=== PATIENT | male | born 1945 | race Caucasian/White ===

== ENCOUNTER 2023-09-04 17:53 | Observation (INO) | payer OTHER ==
--- OUTSIDE RECORDS SUMMARY | 2023-09-04 18:26 | XMS REPORT | Continuity of Care Document ---
Author Name Unknown Address [address] [place] [address] [address] [place] [address] [facility] thconnect Address [address] [facility] [address] [place] [address] Care Team Providers Care Manager Pulmonary Name Role Phone ERICKSON_R Attending Clinician Unavailable Provider, [facility] Attending Clinician Un available Lab, Adc Fam Pob I Attending Clinician Unavailab Otilio Beckwith Attending Clinician OTILIO SIMONS Attending Clinician Unavailable ERDUNCAN_Kan Admitting Clinician Unavailable Payers Payer Name Policy Type Policy Number Effective Date Expirati on Date Source [place] PayProp [id number] 2009 00:00:00 [employer] (INDEMNITY) [id number] 00:00:00 Allergies, Adverse Reactions, Alerts Allergy Name Allergy Type Status Severity Reaction(s) Onset Date Inactive Date Treating Clinician Comments Source NO KNOWN ALLERGIE S Drug Class Active [facility] Social History Social Habit Start Date Stop Date Quantity Comments Source Sex Assigned At [facility] Exposure to SARS-CoV-2 (event) Not sure [facility] Smoking Status Start Date Stop Date Source Unknown if ever smoked [facility] Encounters Start Date/Time End Date/Time Encounter Type Admission Type Attending Clinicians Care Facility Care Department Encounter ID Source 2021-09-22 00:00:00 2021-09-22 00:00:00 Outpatient ERICKSON_R [facility] [id number] 2021-09-03 05:29:00 2021-09-03 05:29:00 Outpatient ERICKSON_R [facility] [id number] 2021-07-30 04:02:00 2021-07-30 04:02:00 Outpatient ERICKSON_R [facility] [id number] 2021-06-24 12:23:00 2021-06-24 12:23:00 Outpatient ERICKSON_R [facility] [id number] 2020-11-15 04:34:00 2020-11-15 04:34:00 Outpatient ERICKSON_R [facility] [id number] 2020-07-29 01:03:00 2020-07-29 01:03:00 Outpatient ERICKSON_R [facility] [id number] 2020-07-09 00:00:00 2020-07-09 00:00:00 Telephone Provider, [facility] ..[id number] [facility] 2020-07-07 11:04:09 2020-07-07 11:24:09 Laboratory Only Lab, [facility] Fam Pob [facility] Office [address] ..[id number] [facility] 2020-07-07 11:00:00 2020-07-07 11:00:00 Outpatient OTILIO QUINTANILLA [facility] [id number] [facility] 2020-06-24 01:02:00 2020-06-24 01:02:00 Outpatient ERICKSON_R [facility] [id number]
[2023-09-04 19:38] LABS: Absolute Basophils 0.1 K/uL (0-0.5); Absolute Eosinophils 0.2 K/uL (0-0.5); Absolute Lymphocytes (CBC) 1.7 K/uL (0.7-4.9); Absolute Monocytes 0.7 K/uL (0.1-1.3); Absolute Neutrophil 4.3 K/uL (1.8-8.0); Basophils % 0.9 % (0-1.3); Eosinophils % 3.4 % (0-4.4); Hematocrit 45.1 % (39.6-49.0); Hemoglobin 15.3 g/dL (13.6-17.9); Lymphocytes % 24.5 % (15.3-44.8); MCH 29.8 pg (27.0-35.0); MCHC 33.9 g/dL (32.0-36.0); MPV 8.4 fL (7.6-11.3); Monocytes % 10.4 % (3.3-12.3); Neutrophils % 60.8 % (41.7-73.7); Nucleated Red Blood Cells % 0.3 % (0-0); Platelets 201 thou/uL (152-406); RBC Red Blood Cell Count 5.12 M/uL (4.33-5.43); Red Cell Distribution Width 12.9 % (12.1-15.2)
[2023-09-04] MEDS: ASPIRIN EC 81 MG TAB PO ONE (19:52)
[2023-09-04] MEDS: ATORVASTATIN 40 MG TAB PO SCH (19:52)
--- NOTE | 2023-09-04 20:09 | RAD REPORT ---
EXAM DESCRIPTION: RAD - Chest Pa And Lat (2 Views) - 09/04/2023 7:46 pm CLINICAL HISTORY: angina COMPARISON: Chest Pa And Lat (2 Views) dated 04/18/2022 TECHNIQUE: PA and lateral views of the chest were obtained. FINDINGS: The lungs are clear. Heart size is normal and central vasculature is within normal limits. No pleural effusion or pneumothorax seen. No acute bony finding noted. IMPRESSION: No acute cardiopulmonary process.
[2023-09-04 20:12] VITALS: BMI 24.8
[2023-09-04 20:39] LABS: Albumin 3.8 g/dL (3.4-5.0); Albumin/Globulin Ratio 1.1 (1.1-1.8); Anion Gap 7.5 mEq/L (5.0-15.0); Bilirubin Total 1.2 mg/dL (0.2-1.0); Globulin 3.5 g/dL (2.3-3.5); Magnesium 2.2 mg/dL (1.6-2.4); Potassium 4.5 mEq/L (3.5-5.1); Protein, Total 7.3 g/dL (6.4-8.2); Thyroid Stimulating Hormone 1.02 uIU/mL (0.358-3.740); Troponin High Sensitivity 33.9 pg/mL (<58.9)
[2023-09-04 21:17] LABS: PT Prothrombin Time 12.3 SECONDS (9.5-12.5); PTT, Activated Partial Thromb 33.6 SECONDS (24.3-36.9); Protime INR 1.12
[2023-09-04] MEDS: HEPARIN/D5W 25,000 UNIT/500 ML BAG IV SCH (22:05)
[2023-09-05 02:21] LABS: Troponin High Sensitivity 32.2 pg/mL (<58.9)
--- NOTE | 2023-09-05 06:18 | HP ---
Date of Admission: 09/04/2023 Chief Complaint: Chest pain. History Of Present Illness: This is a 78-year-old male patient, who has been having some chest pain with exertion lately, who recently saw me as an outpatient about 2 to 3 weeks ago or so and at that t drew, he was referred to wafer line worker and so far he has not had appointment to see wafer line worker yet an d today he was brought into office with family member because of this chest pain. He describes this pain in the center of his chest, sometime in the mid back area. This happens with activity today whi le he was at a grocery shopping at a local [employer]. While walking in the grocery store, he start ed to have this chest pain. Denies any other associated symptoms and pain gets relieved when he sits down. So family decided to bring him to the office and decision was made to admit him to the hospit al for further evaluation and management of this problem and details were discussed with the patient and his who was with him at office today. The patient also states that his pain radiates to his arm. Describes his pain as tightness type of feeling in the chest. Allergies: NO KNOWN ALLERGIES. Medications: Atorvastatin 20 mg daily in the evening and lisinopril 10 mg daily and multivitamin cristobal ly. Review of Systems: Cardiovascular: As mentioned above. All other systems reviewed and negative. Past Medical History: Significant for hypertension, hyperlipidemia, gastroesophageal reflux disease, and benign prostatic hypertrophy. Past Surgical History: Negative. Family History: Father , had stroke. Mother , details unknown. Social History: Prior history of smoking, not at present time, and negative for alcohol use. Physical Examination: Vital Signs: When he came in today to office, blood pressure 124/68, pulse 71, temperature 98.1, res piratory rate 18, weight 180 pounds, height 72 inches. General: Awake, alert, oriented, not in distress. HEENT: Head atraumatic, normocephalic. Conjunctivae nonerythematous. Sclerae white. Mouth, no thr ush or edema noted. Ears/Nose, no mass, lesion, discharge noted. Neck: Supple. No JVD, lymph nodes, bruit, thyromegaly noted. Lungs: Bilateral good equal air entry. Clear to auscultation. No rhonchi. No rales. Heart: Normal heart sounds, no murmur or gallop. Abdomen: Soft, bowel sounds normal. No guarding, rigidity, tenderness, mass, hepatosplenomegaly, dis tention, or bruit noted. Extremities: No leg edema. No calf tenderness. Skin: No rash, ulcer, cellulitis. Lymphatics: No lymph node enlargement in neck, supraclavicular, infraclavicular region. Neuro: No focal neurological deficit. Chest: Unremarkable. External Genitalia: Deferred. Rectal: Deferred. Laboratory Data: White count 7, hemoglobin 15.3, platelets 201. Sodium 140, potassium 4.5, chloride 108, bicarb 29, BUN 11, creatinine 1.04, glucose 99. Liver function tests unremarkable. Troponin 3 3.9. Chest x-ray, no acute cardiopulmonary changes. EKG, normal sinus rhythm, no acute ST-T changes . Impression: 1.Unstable angina. 2.Hypertension. 3.Hyperlipidemia. 4.Gastroesophageal reflux disease. 5.Benign prostatic hypertrophy. Plan: We will go ahead and admit the patient to hospital for further evaluation and management of th is problem. We will start the patient on aspirin 81 mg daily, first dose tonight and then daily as o f tomorrow. Start the patient on heparin drip per protocol. We will consult wafer line worker, Dr. Lida muhammad, and I have called and discussed details with him and we will keep him n.p.o. after midnight for po ssible cardiac cath to be done tomorrow. For hypertension, we will continue his lisinopril 10 mg cristobal ly and monitor blood pressure if necessary. Adjust blood pressure medication. For hyperlipidemia, w e will continue atorvastatin, but increase dose to 40 mg daily instead of 20 mg daily. Details and p shasha of treatment discussed with the patient. FAHAD/MODL Voice ID: [id number]
[2023-09-05] MEDS: ASPIRIN EC 81 MG TAB PO SCH (08:29)
[2023-09-05] MEDS: lisinopriL 10 MG TAB PO SCH (08:29)
[2023-09-05] MEDS: NA CHLORIDE 0.9% 500 ML ONE (12:32)
[2023-09-05] MEDS ORDERED: HEPA 1000U/500MLS 2,000 UNIT/1,000 ML BAG IV ONE (15:34)
[2023-09-05] MEDS ORDERED: LIDOCAINE 1% 20 ML MDV ONE (15:34)
[2023-09-05] MEDS ORDERED: HEPARIN 5000 UNIT/ML 1 ML VIAL ONE (15:35)
[2023-09-05] MEDS ORDERED: VERAPAMIL HCL 10 MG/4 ML VIAL IV ONE (15:35)
[2023-09-05] MEDS ORDERED: ATROPINE SULF 1 MG/10 ML SYR IV ONE (15:35)
[2023-09-05] MEDS ORDERED: MIDAZOLAM HCL 2 MG/2 ML INJ ONE (15:35)
[2023-09-05] MEDS ORDERED: HEPARIN 10,000 UNIT/10 ML VIAL IV ONE (15:36)
[2023-09-05] MEDS ORDERED: CLOPIDOGREL 75 MG TABLET ONE (15:37)
[2023-09-05] MEDS ORDERED: FENTANYL CITR 100 MCG/2 ML ONE (15:37)
[2023-09-05] MEDS ORDERED: TICAGRELOR 90 MG TABLET PO ONE (15:37)
--- NOTE | 2023-09-05 17:05 | EKG ---
Test Date: 2023-09-04 Test Time: 22:15:47 Brickmason: AMITA MEASUREMENT RESULTS: Intervals: Rate: 74 NE: 134 QRSD: 86 QT: 388 QTc: 430 [place]: P: 33 NE: 134 QRS: 61 T: -29 INTERPRETIVE STATEMENTS: Normal sinus rhythm Possible Lateral infarct, age undetermined Possible Inferior infarct, age undetermined Abnormal ECG Compared to ECG 09/04/2023 22:13:45 No significant changes Electronically Signed On 09-05-23 17:02:49 [employer]PERVISOR [employer] by Jean Fernandez
--- NOTE | 2023-09-05 17:05 | EKG ---
Test Date: 2023-09-04 Test Time: 22:13:45 Water Truck Driver: AMITA MEASUREMENT RESULTS: Intervals: Rate: 72 [place]: 128 QRSD: 80 QT: 382 QTc: 418 [place]: P: 23 KS: 128 QRS: 62 T: -14 INTERPRETIVE STATEMENTS: Normal sinus rhythm Possible Lateral infarct, age undetermined Abnormal ECG No previous ECG available for comparison Electronically Signed On 09-05-23 17:02:51 ORTHO/PROSTHETIC AIDE by Jean Fernandez
--- NOTE | 2023-09-05 19:24 | OP ---
Date of Procedure: 09/05/2023 Surgeon: HEIDI CORNELL Procedures Performed: 1.Selective coronary angiogram. 2.Left heart catheterization. Indication: Unstable angina. Access: Right radial artery 6-Vietnamese, closed with TR band. Complications: None. Bleeding: Less than 50 mL. Anesthesia: Total sedation time was 20 minutes. Description Of Procedure: After risks, benefits, and alternatives were explained, the patient agreed to procedure and signed informed consent. The patient was brought into the cardiac catheterization laboratory, prepped and draped in usual sterile fashion. Then, I accessed right radial artery using pediatric micropuncture kit, placed a 6-Vietnamese Slender sheath, and took 5-Vietnamese tiger 4 catheter int o the aortic root over a J-wire, engaged left main and then the right coronary artery, took standard views, then the catheter was pushed over the wire into the LV, measured the LVEDP. Pullback did not record any gradient. Then removed the catheter and the sheath, placed TR band with good hemostasis. Findings: 1.Left main, severe distal left main stenosis, 99%. 2.LAD; proximal 80%, then mid 80%. TIMI1 flow in the LAD and diagonal 1 branch has ostial LAD is ab out 95%. Rest of the LAD with luminal irregularities. 3.Left circumflex; proximal 90% stenosis ostial to proximal. 4.RCA, it is a dominant circulation with proximal to mid 40% to 50% stenosis and then before the bif urcation is 80% stenosis and the PDA is 99% stenosed MARKELL-3 flow and the PDA is giving collaterals to the LAD. 5.LVEDP is 12 mmHg, borderline elevated. Conclusion: Severe multivessel coronary artery disease including left main with borderline elevated LVEDP. Plan: Transfer emergently for emergent CABG. SR/MODL Voice ID: [id number] Report ID: [id number]
[2023-09-05 19:37] VITALS: TEMP 97.4; O2SAT 98
--- NOTE | 2023-09-05 19:45 | CON ---
Date of Consultation: 09/05/2023 Reason For Consultation: Chest pain. History Of Present Illness: A 78-year-old male, history of hypertension, acid reflux, dyslipidemia, presented with chest pain. He saw primary care doctor, Dr. Villarreal, and was having a concerning exertio nal chest pain. An outpatient cardiology evaluation was requested, but the patient before his appoin tment, he started having more frequent chest pain, pressure like, left sided. While walking to get g [employer], he will have significant heaviness in his chest, gets better with rest and is becoming more frequent and more severe. At this time, he is chest pain free. Past Medical History: Dyslipidemia, hypertension, acid reflux. Medications: Refer reconciliation sheet for detailed list. Allergies: NO KNOWN DRUG ALLERGIES. Family History: No premature coronary artery disease. Social History: Does not smoke or drink. Does not use any drugs. Review of Systems: All systems reviewed and they were negative except as mentioned in the HPI. Physical Examination: Vital Signs: Reviewed. Head and Neck: Pupils are equal, reactive to light. Intact eye movements. No JVD. No cervical lym phadenopathy. Neck is supple. Thyroid is not enlarged. Lungs: Clear to auscultation bilaterally. No rhonchi, rales, or crackles. No accessory muscle use. Heart: Regular rate and rhythm. No extra sounds. Abdomen: Soft, nontender. Bowel sounds positive. No organomegaly. No masses or hernia. No rigidi ty or rebound. Extremities: No edema, clubbing, or cyanosis. Intact pulses. Skin: No rash. Neurologic: Alert, awake, oriented x3. No acute focal deficits appreciated. Investigations: First cardiac enzymes 2 sets are negative. BUN 11, creatinine 1.04, and hemoglobin 15.3. Assessment/recommendation: 1.Unstable angina. Pain is typical, new onset, more frequent, suggestive of unstable angina. I dis cussed the case with Dr. Villarreal, placed the patient on heparin overnight and baby aspirin. The patient is n.p.o., plan for coronary angiogram today. 2.Hypertension. Blood pressure is controlled. Continue lisinopril. 3.Dyslipidemia. Continue statin. SR/MODL Voice ID: [id number] Report ID: [id number]
--- NOTE | 2023-09-05 20:21 | DS ---
Date of Discharge: 09/05/2023 Physical Examination: HEENT: Unremarkable. Lungs: Clear to auscultation. Heart: Sounds normal. Abdomen: Soft. Bowel sounds normal. No guarding, rigidity, tenderness, distention. Extremities: No leg edema. Laboratory Data: Yesterday's lab results reviewed today. Total cholesterol 119, LDL 45, triglyceride 158, HDL 42, and troponin level this morning 32.2. Disposition: Transferred to another hospital for higher level of care for emergency coronary artery bypass surgery. Final Diagnoses: 1. Unstable angina. 2. Coronary artery disease. 3. Hypertension. 4. Hyperlipidemia. 5. Gastroesophageal reflux disease. 6. Benign prostatic hypertrophy. Hospital Course: This is a 78-year-old very pleasant male patient who was admitted to the hospital after he came into office yesterday with unstable angina. Please see dictated H and P for more information. After patient was evaluated at office, decision was made to admit him to the hospital. His PR was ruled out by getting serial cardiac enzymes. Yesterday, soon after admission, he was started on aspirin and 1 dose of aspirin 81 mg p.o. was given yesterday evening and daily aspirin was ordered for today. We also started him on heparin drip per protocol after admission. This morning, he was asymptomatic. Yesterday after his admission to the hospital, details were discussed with armed custom protection officer, Dr. Fernandez, and patient had a cardiac cath done today. After cardiac cath was done, Dr. Fernandez called me and informed me that the patient has severe coronary artery disease and he needs an emergent coronary artery bypass surgery, and he is going to make arrangements for patient to be transferred to another hospital for higher level of care. FAHAD/MODL Voice ID: [id number] Report ID: [id number] ELDER
[2023-09-05 21:58] VITALS: BP 120/65
== END 2023-09-05 22:05 | disposition short-term general hospital (02) ==
LOC: 2ND 18:23
PROVIDERS: ADMIT Internal Medicine; ATTEND Internal Medicine
PROC: 4A023N7 Measurement of Cardiac Sampling and Pressure, Left Heart, Percutaneous Approach (ICD-10-PCS; principal; 2023-09-05)
PROC: B2111ZZ Fluoroscopy of Multiple Coronary Arteries using Low Osmolar Contrast (ICD-10-PCS; 2023-09-05)
DX: I25.110 Atherosclerotic heart disease of native coronary artery with unstable angina pectoris (principal); I10 Essential (primary) hypertension; E78.5 Hyperlipidemia, unspecified; K21.9 Gastro-esophageal reflux disease without esophagitis; N40.0 Benign prostatic hyperplasia without lower urinary tract symptoms; Z87.891 Personal history of nicotine dependence; Z79.899 Other long term (current) drug therapy; Z82.3 Family history of stroke
CPT/HCPCS: 93005 ×2; 85025; 36415; 83735; 85610; 80061; 85730 ×3; 84443; 84484 ×2; 80053; 71046; 93458; 76937; C1893; Q9966; J1644; J2001; J2250; J3010; G0378 ×3; J7040; G0379; 85347; 99152; 99153; J0461